=== PATIENT | female | born 2000 | race Caucasian/White ===

== ENCOUNTER 2023-04-05 10:06 | Emergency (ER) | payer OTHER ==
[2023-04-05 10:24] VITALS: BP 96/64; PULSE 90; RESP 17; TEMP 99.4; BMI 21.0
[2023-04-05] MEDS ORDERED: ACETAMINOPHEN 500 MG TABLET (FP) PO ONE (10:53)
[2023-04-05] MEDS ORDERED: ACETAMINOPHEN 500 MG TABLET (FP) ONE (11:20)
[2023-04-05 12:17] LABS: THROAT:GRP A STREP DETECTED (NOTDETECTED)
[2023-04-05] MEDS ORDERED: AMOXICILLIN 500 MG CAPSULE (FP) PO ONE (12:21)
[2023-04-05] MEDS ORDERED: AMOXICILLIN 250 MG CAPSULE ONE (12:49)
== END 2023-04-05 13:13 | disposition home or self-care (01) ==
LOC: JER 10:06 → JERFT 10:06
DX: R50.9 Fever, unspecified (principal); R07.0 Pain in throat; R05.9 Cough, unspecified; J02.0 Streptococcal pharyngitis; Z20.822 Contact with and (suspected) exposure to COVID-19
CPT/HCPCS: 0241U-QW; 87070; 87077; 87651; 99283-25

== ENCOUNTER 2023-11-10 05:01 | Emergency (ER) | payer OTHER ==
[2023-11-10 05:14] VITALS: BP 98/65; RESP 18; BMI 23.0
[2023-11-10] MEDS ORDERED: METOCLOPRAMIDE HCL INJECTION 10 MG/2 ML VIAL IM ONE (05:24)
[2023-11-10] MEDS ORDERED: METOCLOPRAMIDE HCL INJECTION 10 MG/2 ML VIAL ONE (05:32)
[2023-11-10] MEDS ORDERED: ACETAMINOPHEN 325 MG TABLET (FP) PO ONE (05:52)
[2023-11-10] MEDS ORDERED: ACETAMINOPHEN 325 MG TABLET (FP) ONE (06:00)
[2023-11-10] MEDS ORDERED: SODIUM CHLORIDE 0.9% 500 ML INFUS.BAG IV ONE (06:09)
[2023-11-10 07:23] VITALS: TEMP 99.3
[2023-11-10 07:58] VITALS: PULSE 97
== END 2023-11-10 07:58 | disposition home or self-care (01) ==
LOC: JER 05:01
PROC: 3E023GC Introduction of Other Therapeutic Substance into Muscle, Percutaneous Approach (ICD-10-PCS; principal; 2023-11-10)
DX: R51.9 Headache, unspecified (principal); R50.9 Fever, unspecified; R42 Dizziness and giddiness; R05.9 Cough, unspecified; R09.3 Abnormal sputum; M79.10 Myalgia, unspecified site; R09.81 Nasal congestion; J10.1 Influenza due to other identified influenza virus with other respiratory manifestations; Z20.822 Contact with and (suspected) exposure to COVID-19
CPT/HCPCS: 0241U-QW; 99284-25